=== PATIENT | female | born 1950 | race Caucasian/White ===

== ENCOUNTER → 2023-07-14 12:55 | Outpatient (REF) | payer SELFPAY | LOC: HWRAD 12:55 | PROVIDERS: ATTENDING PHYSICIAN Student in an Organized Health Care Education/Training Program | DX: E78.00 Pure hypercholesterolemia, unspecified (principal) | CPT/HCPCS: 75571 ==

== ENCOUNTER → 2023-07-14 12:59 | Outpatient (REF) | payer OTHER, SELFPAY | LOC: HWRAD 12:59 | PROVIDERS: ATTENDING PHYSICIAN Student in an Organized Health Care Education/Training Program | DX: M25.641 Stiffness of right hand, not elsewhere classified (principal) | CPT/HCPCS: 73130 ==

== ENCOUNTER → 2023-09-18 16:34 | Outpatient (REF) | payer OTHER, SELFPAY | LOC: PAVMRI 16:34 | PROVIDERS: ATTENDING PHYSICIAN Student in an Organized Health Care Education/Training Program | DX: M54.50 Low back pain, unspecified (principal); M54.12 Radiculopathy, cervical region; M50.30 Other cervical disc degeneration, unspecified cervical region; M54.31 Sciatica, right side; M54.32 Sciatica, left side; M54.6 Pain in thoracic spine | CPT/HCPCS: 72146; 72148 ==

== ENCOUNTER → 2023-09-24 13:25 | Outpatient (REF) | payer OTHER, SELFPAY | LOC: RAD 13:25 | PROVIDERS: ATTENDING PHYSICIAN Otolaryngology Otolaryngology/Facial Plastic Surgery; FAMILY PHYSICIAN Student in an Organized Health Care Education/Training Program | DX: M54.50 Low back pain, unspecified (principal); M54.17 Radiculopathy, lumbosacral region | CPT/HCPCS: 72110 ==

== ENCOUNTER → 2023-09-29 06:30 | Day surgery (SDC) | payer OTHER, SELFPAY | LOC: GI 06:30 | PROVIDERS: ATTENDING PHYSICIAN Internal Medicine | DX: Z12.11 Encounter for screening for malignant neoplasm of colon (principal); K64.9 Unspecified hemorrhoids; K57.30 Diverticulosis of large intestine without perforation or abscess without bleeding | CPT/HCPCS: G0105 ==

== ENCOUNTER → 2024-02-11 12:11 | Outpatient (REF) | payer OTHER, SELFPAY | LOC: WDC 12:11 | PROVIDERS: ATTENDING PHYSICIAN Student in an Organized Health Care Education/Training Program | DX: Z12.31 Encounter for screening mammogram for malignant neoplasm of breast (principal) | CPT/HCPCS: 77063; 77067 ==

== ENCOUNTER → 2024-06-10 12:43 | Outpatient (REF) | payer OTHER, SELFPAY | LOC: RAD 12:43 | PROVIDERS: ATTENDING PHYSICIAN Student in an Organized Health Care Education/Training Program | DX: M25.562 Pain in left knee (principal); M25.561 Pain in right knee; M25.50 Pain in unspecified joint | CPT/HCPCS: 73564 ==

== ENCOUNTER → 2024-06-16 09:46 | Outpatient (REF) | payer OTHER, SELFPAY | LOC: RCS 09:46 | PROVIDERS: ATTENDING PHYSICIAN Student in an Organized Health Care Education/Training Program | DX: R06.09 Other forms of dyspnea (principal) | CPT/HCPCS: 93017 ==

== ENCOUNTER 2024-06-26 08:31 | Emergency (ER) | payer OTHER, SELFPAY ==
[2024-06-26 09:31] VITALS: BMI 23.3
[2024-06-26] MEDS: TYLENOL 1000 MG PO (09:41)
--- NOTE | 2024-06-26 09:42 | ED.GENMED ---
History of Present Illness
General
Chief Complaint: Musculo-Skeletal Complaint
Time Seen by Provider: 06/26/24 09:18
History of Present Illness
History of Present Illness:
Patient is a 73-year-old woman presenting to the emergency department after a fall. Patient states that yesterday night she felt landing on her left knee. She not hit her head or lose consciousness. She is not on any blood thinner. She went home
iced it and took a Tylenol. She woke up and her left knee was significantly swollen so she came in for further evaluation. She does state that she been having some difficulty ambulating. No numbness tingling. No weakness. No trauma elsewhere
Phy Exam
Physical Exam
Physical Exam:
GENERAL: no acute distress
HEENT: atraumatic
NECK: no midline tenderness, normal range of motion
BACK: no midline tenderness, no other obvious trauma
CHEST: no tenderness
LUNGS: clear to auscultation bilaterally
CARDIOVASCULAR: regular rate and rhythm
ABDOMEN: soft, non-tender, no masses, no other obvious trauma
PELVIS: stable, no obvious injury
EXTREMITIES: Left knee with swelling and tenderness to the patella, limited range of motion secondary to the pain moving all extremities, distal pulses intact
NEUROLOGIC: awake, alert x 3, no focal deficits
Course
Orders/Labs/Results
Orders:
Orders
06/26/24 08:41
CR Knee - Left 4 Or More View* Urgent
Comment:
Reason For Exam: fall
06/26/24 09:36
Acetaminophen [Tylenol] 1,000 mg PO NOW STA
06/26/24 11:32
Crutches-Treatment ONCE
Knee Immobilizer Left-Treatmen ONCE
Vital Signs
Initial and Last Documented VS:
Initial Vital Signs
Temp Pulse Resp Pulse Ox
98.2 F 73 16 100
06/26/24 08:37 06/26/24 08:37 06/26/24 08:37 06/26/24 08:37
Last Documented Vital Signs
Temp Pulse Resp BP Pulse Ox
98.2 F 91 20 117/76 100
06/26/24 08:37 06/26/24 12:27 06/26/24 12:27 06/26/24 12:27 06/26/24 12:27
MDM/Problems Addressed
Differential Diagnosis Includes:
Patient is a 73-year-old woman presenting to the emergency department with left knee pain after falling directly onto it. Vitals are unremarkable and exam does show tenderness and swelling to the left knee. Concern for fracture versus ligamentous
injury. Will obtain x-ray. Will pain control.
*Critical Care Note
Total Time (30-74mins, 75-104mins- exclusive of procedures): Not Applicable
Update Note
Update Note:
X-ray per my interpretation with patellar fracture. Patient placed in immobilizer and given crutches. She was able to ambulate with her crutches. Give patient orthopedic follow-up. I did offer patient a short course of oxycodone to help with her
pain however she would prefer to hold off at this time and will try the Tylenol and ice. I do think this is reasonable as her pain has been controlled here. Will discharge at this time. Patient given strict return precautions.
ED Attending Note
-
Portions of this chart may have been created with voice recognition software.� Occasional wrong word or��sound alike� substitutions may have occurred due to the inherent limitations of voice recognition software.
Discharge Plan
Departure
Patient Disposition: Home (Routine Discharge)
Date of Disposition: 06/26/24
Time of Disposition: 12:10
Patient with high blood pressure during this ER visit?: No
Discharge Problem:
Patellar fracture
Instructions: Knee Immobilizer (DC)
Referrals:
Dyllan Birch MD [Active] -
Linh Mays MD [Family Provider] -
Activity Restrictions/Additional Instructions:
You were seen in the Emergency Department today for a kneecap fracture. Please keep the knee immobilizer on at all times until you been evaluated by your orthopedic surgeon. If you note that you have any numbness, tingling,worsening pain, or
discoloration to your leg please loosen the knee immobilizer. If your symptoms do not resolve please immediately come to the emergency department.
We would like for you to follow up with your primary care physician for further evaluation. If you experience fever, worsening of your symptoms, or develop any other new or concerning symptoms, please return to the Emergency Department immediately.
Please see the attached sheet for additional information.
Interventions
Interventions:
*Risk Screen - Suicide Last Done: 06/26/24 08:37
*General Assessment Last Done: 06/26/24 08:37
*ED COVID-19 Vaccine History Last Done: 06/26/24 08:37
ED-Musculoskeletal Assessment Last Done: 06/26/24 09:31
Discharge Date and Time
Print Language: NOR[place]
[2024-06-26 12:27] VITALS: BP 117/76
== END 2024-06-26 12:34 | disposition home or self-care (01) ==
LOC: EMR 08:31
PROVIDERS: EMERGENCY PHYSICIAN Student in an Organized Health Care Education/Training Program; FAMILY PHYSICIAN Student in an Organized Health Care Education/Training Program
DX: S82.002A Unspecified fracture of left patella, initial encounter for closed fracture (principal); W19.XXXA Unspecified fall, initial encounter; Z88.8 Allergy status to other drugs, medicaments and biological substances
CPT/HCPCS: 99283; 29505; 73564

== ENCOUNTER → 2024-07-03 08:59 | Outpatient (REF) | payer OTHER, SELFPAY | LOC: PAVMRI 08:59 | PROVIDERS: ATTENDING PHYSICIAN Physician Assistant | DX: M25.562 Pain in left knee (principal) | CPT/HCPCS: 73721 ==

== ENCOUNTER → 2025-01-12 14:35 | Outpatient (REF) | payer OTHER, SELFPAY | LOC: RCS 14:35 | DX: R06.09 Other forms of dyspnea (principal) | CPT/HCPCS: 71046; 93306 ==

== ENCOUNTER → 2025-02-05 14:00 | Outpatient (REF) | payer OTHER, SELFPAY | LOC: MRI 3T 14:00 | PROVIDERS: ATTENDING PHYSICIAN Orthopaedic Surgery; FAMILY PHYSICIAN Student in an Organized Health Care Education/Training Program | DX: M54.12 Radiculopathy, cervical region (principal) | CPT/HCPCS: 72141 ==

== ENCOUNTER → 2025-02-14 10:33 | Outpatient (REF) | payer OTHER, SELFPAY | LOC: WDC 10:33 | PROVIDERS: ATTENDING PHYSICIAN Obstetrics & Gynecology; FAMILY PHYSICIAN Student in an Organized Health Care Education/Training Program | DX: Z12.31 Encounter for screening mammogram for malignant neoplasm of breast (principal) | CPT/HCPCS: 77063; 77067 ==

== ENCOUNTER → 2025-03-31 11:14 | Outpatient (REF) | payer OTHER, SELFPAY | LOC: RAD 11:14 | PROVIDERS: ATTENDING PHYSICIAN Obstetrics & Gynecology; FAMILY PHYSICIAN Student in an Organized Health Care Education/Training Program | DX: Z78.0 Asymptomatic menopausal state (principal) | CPT/HCPCS: 77080 ==